=== PATIENT | female | born 1970 | race Caucasian/White ===

== ENCOUNTER 2017-03-12 11:30 | Emergency (ER) | payer MEDICAID ==
[~2017-03-12] VITALS: Ht 162.6 cm; Wt 82.0 kg
[2017-03-12 11:51] VITALS: BP 122/74
[2017-03-12] MEDS ORDERED: acetaminophen 325mg tablet PO ONE (14:05)
[2017-03-12] MEDS ORDERED: aspirin 325mg tablet PO ONE (14:05)
[2017-03-12 14:15] LABS: CLARITY,URINE CLEAR (Clear); COLOR,URINE YELLOW (Yellow); GLUCOSE, URINE NEGATIVE (Neg); KETONES,URINE NEGATIVE (Neg); LEUKOCYTE ESTERASE ,URINE NEGATIVE (Neg); NITRITES, URINE NEGATIVE (Neg); OCCULT BLOOD,URINE TRACE-INTACT (Neg); PH,URINE 5.5 (4.8-8.0); PROTEIN,URINE NEGATIVE (Neg); UROBILINOGEN,URINE 0.2 E.U/dL (0.2-1.0)
[2017-03-12 14:19] LABS: UA COLLECTION TYPE CLN CATCH MIDSTREAM
[2017-03-12 14:20] LABS: RBC,URINE NONE SEEN /HPF (0-2); WBC,URINE 0-4 /HPF (0-4)
[2017-03-12 14:21] LABS: BACTERIA,URINE 1+ /HPF (Neg); MUCUS STRANDS NONE SEEN /LPF (Neg); SQUAMOUS EPITHELIAL CELL,UR FEW /LPF (FEW)
[2017-03-12] MEDS ORDERED: HYDR-3965 PO (15:16)
[2017-03-12] MEDS ORDERED: CYCL-1 PO (15:16)
== END 2017-03-12 15:22 | disposition home or self-care (01) ==
LOC: ER 11:30
DX: M54.6 Pain in thoracic spine (principal); R31.29 Other microscopic hematuria; Z88.5 Allergy status to narcotic agent
CPT/HCPCS: 81001; 87088; 99284

== ENCOUNTER 2020-10-25 04:03 | Inpatient (IN) | payer BC, MEDICAID ==
[~2020-10-25] VITALS: Ht 162.6 cm; Wt 86.4 kg
[~2020-10-25 04:03] MED LIST: CYCL-1 PO
[2020-10-25] MEDS ORDERED: normal saline 1000ml 1,000 ML IV ONE (04:35)
[2020-10-25 05:12] LABS: BASOPHILS % (AUTO) 0.3 % (0-1); EOSINOPHILS % (AUTO) 0 % (0-6); HEMATOCRIT 39.2 % (35.0-45.0); HEMOGLOBIN 12.7 g/dl (12.0-16.0); LYMPHOCYTES % (AUTO) 18.9 % (21-51); MEAN CORPUSCULAR HEMOGLOBIN 28.4 PG (27.0-31.0); MEAN CORPUSCULAR HGB CONC 32.4 g/dL (33.0-36.5); MEAN CORPUSCULAR VOLUME 87.7 FL (78-98); MEAN PLATELET VOLUME 8.1 FL (7.4-10.4); MONOCYTES # (AUTO) 0.2 X10'3 (0-0.9); MONOCYTES % (AUTO) 2.2 % (2-12); NEUTROPHILS # (AUTO) 8.4 X10'3 (1.8-7.7); NEUTROPHILS % (AUTO) 78.6 % (42-75); PLATELET COUNT 328 X10'3 (140-440); RED BLOOD COUNT 4.47 X10'6 (4.20-5.60); RED CELL DISTRIBUTION WIDTH 14.3 % (11.5-14.5); WHITE BLOOD COUNT 10.7 X10'3 (4.5-11.0)
[2020-10-25 05:15] LABS: ALBUMIN 3.1 G/DL (3.4-5.0); ANION GAP 10 (8-16); BLOOD UREA NITROGEN 7 MG/DL (7-18); BUN/CREATININE RATIO 7.5 (6.6-38.0); CALCIUM 8.2 MG/DL (8.5-10.1); CHLORIDE 105 MMOL/L (99-107); CREATININE 0.93 MG/DL (0.40-0.90); GLUCOSE 142 MG/DL (70-104); POTASSIUM 3.4 MMOL/L (3.5-5.1); SODIUM 143 MMOL/L (135-145); TOTAL CARBON DIOXIDE 28.5 MMOL/L (24-32); TROPONIN I < 0.04 NG/ML (0.0-0.05); eGFR 64 ML/MIN
[2020-10-25] MEDS ORDERED: dexamethasone sod phosphate 10mg/ml inj IV STA (05:56)
[2020-10-25] MEDS ORDERED: REMDESIVIR INJ 100 MG in normal saline 100ml IV soln 100 ML IV SCH (08:40)
[2020-10-25] MEDS ORDERED: ondansetron/PF 4mg/2ml inj IV PRN (08:40)
[2020-10-25] MEDS ORDERED: magnesium hydroxide 30ml (MOM) UD suspension PO PRN (08:40)
[2020-10-25] MEDS ORDERED: mag hydrox/Alum hydrox/simeth 30ml oral suspension PO PRN (08:40)
[2020-10-25] MEDS ORDERED: REMDESIVIR 200 MG in NS 100ml IVPB Loading dose IV ONE (08:50)
--- NOTE | 2020-10-25 08:57 | NUR ---
PAGER ID: [phone] MESSAGE: Patient [facility] ED room 15 has a K+ of 3.4. I need the replacement protocol. Thanks Sandra ext [phone]
[2020-10-25] MEDS: normal saline 1000ml 1,000 ML IV SCH ×2 (09:10→18:40)
[2020-10-25] MEDS: acetaminophen 325mg tablet PO PRN ×2 (09:10→19:54)
[2020-10-25] MEDS ORDERED: METO-395 PO (09:32)
[2020-10-25] MEDS ORDERED: BUPR-317 PO (09:32)
[2020-10-25] MEDS ORDERED: HYDR50CA5 PO (09:32)
[2020-10-25] MEDS ORDERED: LEVO50TA8 PO (09:32)
[2020-10-25] MEDS ORDERED: VITA-268 PO (09:32)
[2020-10-25] MEDS ORDERED: SERT-433 PO (09:32)
[2020-10-25] MEDS ORDERED: IVER3TAB2 PO (09:32)
[2020-10-25] MEDS ORDERED: HYDR200T84 PO (09:32)
[2020-10-25] MEDS ORDERED: CHOL100025 PO (09:32)
[2020-10-25] MEDS ORDERED: ASCO-10 PO (09:32)
[2020-10-25 09:36] LABS: C-REACTIVE PROTEIN 15.95 MG/DL (0.0-0.5); FERRITIN 578 NG/ML (8-252); LACTATE DEHYDROGENASE 753 U/L (81-234)
[2020-10-25] MEDS: sertraline 50mg tablet PO SCH (10:14)
[2020-10-25] MEDS: levoTHYROXINE 25mcg tablet PO SCH (10:14)
[2020-10-25] MEDS: ascorbic acid 500mg tablet PO SCH ×2 (10:15→20:23)
[2020-10-25] MEDS: hydrOXYzine 25 MG tablet PO PRN (10:15)
[2020-10-25] MEDS: buPROPion SR 150mg tablet PO SCH (10:16)
[2020-10-25] MEDS: cholecalciferol (vitamin D3) 1,000 unit (25mcg) tablet PO SCH (10:16)
[2020-10-25] MEDS: metoprolol succinate 25mg (24-HOUR) SR. Tablet PO SCH (10:17)
[2020-10-25 10:30] LABS: D-DIMER 2.31 MG/L FEU (0-0.50)
--- NOTE | 2020-10-25 19:40 | NUR ---
Attempted to call report to COVID unit [phone], phone rang without answer.
[2020-10-25] MEDS: docusate sod 100mg capsule PO SCH (20:23)
[2020-10-25] MEDS: enoxaparin 30mg/0.3ml syringe SQ SCH (20:24)
[2020-10-25] MEDS: dexamethasone inj 6 MG in normal saline 50ml IV soln 50 ML IV SCH (21:07)
[2020-10-25 21:30] VITALS: BP 123/72
[2020-10-25 22:00] VITALS: BP 113/64
[2020-10-26] MEDS: normal saline 1000ml 1,000 ML IV SCH ×3 (05:38→23:58)
[2020-10-26 06:00] VITALS: BP 123/73
--- NOTE | 2020-10-26 06:45 | NUR ---
Problems reprioritized. Patient report given, questions answered & plan of care reviewed with DAVID. Addendum: 10/26/20 at 0646 by Long Pro RN Amended: Links added.
--- NOTE | 2020-10-26 06:52 | NUR ---
Patient in room COVID 06. I have received report from Lucius Silvestre and had the opportunity to ask questions and assume patient care.
--- NOTE | 2020-10-26 07:00 | NUR ---
Problems reprioritized. Patient report given, questions answered & plan of care reviewed with DAVID. Addendum: 10/26/20 at 0700 by Long Pro RN Amended: Links added.
[2020-10-26 07:52] LABS: BASOPHILS % (AUTO) 0.1 % (0-1); EOSINOPHILS % (AUTO) 0 % (0-6); HEMATOCRIT 35.5 % (35.0-45.0); HEMOGLOBIN 11.6 g/dl (12.0-16.0); LYMPHOCYTES % (AUTO) 26.6 % (21-51); MEAN CORPUSCULAR HEMOGLOBIN 28.3 PG (27.0-31.0); MEAN CORPUSCULAR HGB CONC 32.6 g/dL (33.0-36.5); MEAN CORPUSCULAR VOLUME 86.8 FL (78-98); MEAN PLATELET VOLUME 7.6 FL (7.4-10.4); MONOCYTES # (AUTO) 0.5 X10'3 (0-0.9); MONOCYTES % (AUTO) 6.2 % (2-12); NEUTROPHILS # (AUTO) 5.1 X10'3 (1.8-7.7); NEUTROPHILS % (AUTO) 67.1 % (42-75); PLATELET COUNT 381 X10'3 (140-440); RED BLOOD COUNT 4.09 X10'6 (4.20-5.60); RED CELL DISTRIBUTION WIDTH 14.1 % (11.5-14.5); WHITE BLOOD COUNT 7.6 X10'3 (4.5-11.0)
[2020-10-26] MEDS ORDERED: hydroxychloroquine 200mg tablet PO SCH (08:00)
[2020-10-26 08:05] LABS: ALANINE AMINOTRANSFERASE 45 U/L (12-78); ALBUMIN 2.5 G/DL (3.4-5.0); ALBUMIN/GLOBULIN RATIO 0.6 (1.1-1.5); ALKALINE PHOSPHATASE 106 IU/L (46-116); ANION GAP 9 (8-16); ASPARTATE AMINO TRANSFERASE 48 U/L (10-37); BILIRUBIN,TOTAL 0.3 MG/DL (0.1-1.0); BLOOD UREA NITROGEN 11 MG/DL (7-18); BUN/CREATININE RATIO 19.6 (6.6-38.0); C-REACTIVE PROTEIN 12.03 MG/DL (0.0-0.5); CALCIUM 7.6 MG/DL (8.5-10.1); CHLORIDE 109 MMOL/L (99-107); CREATININE 0.56 MG/DL (0.40-0.90); D-DIMER 2.64 MG/L FEU (0-0.50); GLUCOSE 141 MG/DL (70-104); POTASSIUM 3.6 MMOL/L (3.5-5.1); SODIUM 144 MMOL/L (135-145); TOTAL CARBON DIOXIDE 26.3 MMOL/L (24-32); TOTAL PROTEIN 6.8 G/DL (6.4-8.2); eGFR > 90 ML/MIN
[2020-10-26] MEDS: dexamethasone inj 6 MG in normal saline 50ml IV soln 50 ML IV SCH ×2 (08:15→20:47)
[2020-10-26] MEDS: vitamin B comp w/Vit. C tab 1 TAB TABLET PO SCH (08:15)
[2020-10-26] MEDS: metoprolol succinate 25mg (24-HOUR) SR. Tablet PO SCH (08:15)
[2020-10-26] MEDS: docusate sod 100mg capsule PO SCH ×3 (08:16→20:47)
[2020-10-26] MEDS: cholecalciferol (vitamin D3) 1,000 unit (25mcg) tablet PO SCH (08:16)
[2020-10-26] MEDS: buPROPion SR 150mg tablet PO SCH (08:16)
[2020-10-26] MEDS: levoTHYROXINE 25mcg tablet PO SCH (08:16)
[2020-10-26] MEDS: hydrOXYzine 25 MG tablet PO PRN ×2 (08:16→23:15)
[2020-10-26] MEDS: sertraline 50mg tablet PO SCH (08:17)
[2020-10-26] MEDS: enoxaparin 30mg/0.3ml syringe SQ SCH (08:17)
[2020-10-26] MEDS: ascorbic acid 500mg tablet PO SCH ×2 (08:48→20:47)
[2020-10-26] MEDS: REMDESIVIR 100 MG in NS 100ml IVPB IV SCH (08:49)
--- NOTE | 2020-10-26 09:43 | NUR ---
Patient requiring 15L high alan oxygen. Patient was down to 71 on nasal cannula. Patient on 15L non rebreather mask but remains at 88-89. RT in to see patient and patient is on 15L high alan nasal cannula and 15L non rebreather mask and is now 94% spo2. Will continue to monitor. PAGER ID: [phone] MESSAGE: covid unit 6B- [facility]- pt needing to be on 15L high alan. ok to put in order? - Jono [phone] Addendum: 10/26/20 at 1840 by Jono Dickson RN Problems reprioritized. Patient report given, questions answered & plan of care reviewed with DENNIS Ellis.
[2020-10-26] MEDS ORDERED: pneumococcal 23-VAL P-sac vacc 25 mcg/0.5ml vial IMVAC ONE (10:00)
[2020-10-26 11:14] VITALS: BP 129/66
[2020-10-26 15:09] VITALS: BP 129/76
--- NOTE | 2020-10-26 18:30 | NUR ---
Patient in room COVID 06. I have received report from Jono COLLINS and had the opportunity to ask questions and assume patient care.
[2020-10-26 19:00] VITALS: BP 131/65
[2020-10-26] MEDS: enoxaparin 60mg/0.6ml syringe SUBCUT SCH (20:49)
[2020-10-26 23:30] VITALS: BP 134/75
[2020-10-27 04:00] VITALS: BP 141/86
--- NOTE | 2020-10-27 06:30 | NUR ---
Problems reprioritized. Patient report given, questions answered & plan of care reviewed with Sunni COLLINS.
[2020-10-27 07:00] VITALS: BP 133/81
[2020-10-27] MEDS: levoTHYROXINE 25mcg tablet PO SCH (07:31)
[2020-10-27] MEDS: cholecalciferol (vitamin D3) 1,000 unit (25mcg) tablet PO SCH (07:32)
[2020-10-27] MEDS: dexamethasone inj 6 MG in normal saline 50ml IV soln 50 ML IV SCH ×2 (07:32→20:38)
[2020-10-27] MEDS: docusate sod 100mg capsule PO SCH ×2 (07:32→20:00)
[2020-10-27] MEDS: vitamin B comp w/Vit. C tab 1 TAB TABLET PO SCH (07:33)
[2020-10-27] MEDS: metoprolol succinate 25mg (24-HOUR) SR. Tablet PO SCH (07:33)
[2020-10-27] MEDS: buPROPion SR 150mg tablet PO SCH (07:34)
[2020-10-27] MEDS: sertraline 50mg tablet PO SCH (07:34)
[2020-10-27] MEDS: enoxaparin 60mg/0.6ml syringe SUBCUT SCH (07:34)
[2020-10-27 08:32] LABS: BASOPHILS % (AUTO) 0 % (0-1); EOSINOPHILS % (AUTO) 0 % (0-6); HEMOGLOBIN 11.9 g/dl (12.0-16.0); LYMPHOCYTES # (AUTO) 2.7 X10'3 (1.1-4.8); LYMPHOCYTES % (AUTO) 21.7 % (21-51); MEAN CORPUSCULAR HEMOGLOBIN 28.5 PG (27.0-31.0); MEAN CORPUSCULAR HGB CONC 32.9 g/dL (33.0-36.5); MEAN CORPUSCULAR VOLUME 86.4 FL (78-98); MEAN PLATELET VOLUME 7.5 FL (7.4-10.4); MONOCYTES # (AUTO) 0.7 X10'3 (0-0.9); MONOCYTES % (AUTO) 5.7 % (2-12); NEUTROPHILS % (AUTO) 72.6 % (42-75); PLATELET COUNT 437 X10'3 (140-440); RED BLOOD COUNT 4.17 X10'6 (4.20-5.60); RED CELL DISTRIBUTION WIDTH 14.5 % (11.5-14.5); WHITE BLOOD COUNT 12.4 X10'3 (4.5-11.0)
[2020-10-27] MEDS: ascorbic acid 500mg tablet PO SCH ×2 (08:43→20:38)
[2020-10-27] MEDS: REMDESIVIR 100 MG in NS 100ml IVPB IV SCH (08:44)
[2020-10-27 09:13] LABS: ALANINE AMINOTRANSFERASE 46 U/L (12-78); ALBUMIN 2.6 G/DL (3.4-5.0); ALBUMIN/GLOBULIN RATIO 0.6 (1.1-1.5); ALKALINE PHOSPHATASE 105 IU/L (46-116); ANION GAP 11 (8-16); ASPARTATE AMINO TRANSFERASE 53 U/L (10-37); BILIRUBIN,TOTAL 0.3 MG/DL (0.1-1.0); BLOOD UREA NITROGEN 15 MG/DL (7-18); BUN/CREATININE RATIO 22.7 (6.6-38.0); C-REACTIVE PROTEIN 3.78 MG/DL (0.0-0.5); CALCIUM 7.9 MG/DL (8.5-10.1); CHLORIDE 110 MMOL/L (99-107); CREATININE 0.66 MG/DL (0.40-0.90); GLUCOSE 129 MG/DL (70-104); POTASSIUM 3.8 MMOL/L (3.5-5.1); SODIUM 147 MMOL/L (135-145); TOTAL CARBON DIOXIDE 26.1 MMOL/L (24-32); TOTAL PROTEIN 6.8 G/DL (6.4-8.2); eGFR > 90 ML/MIN
[2020-10-27 09:49] LABS: D-DIMER 5.61 MG/L FEU (0-0.50)
[2020-10-27] MEDS ORDERED: pneumococcal 23-VAL P-sac vacc 25 mcg/0.5ml vial IMVAC ONE (10:00)
--- NOTE | 2020-10-27 10:37 | NUR ---
ok to give pneumococcal vaccine while patient has covid per pharmacist.
[2020-10-27 12:30] VITALS: BP 136/78
[2020-10-27] MEDS: normal saline 1000ml 1,000 ML IV SCH (12:35)
[2020-10-27 16:00] VITALS: BP 137/72
[2020-10-27] MEDS ORDERED: iohexol 350MG/ML 100ml bottle IV ONE (16:43)
--- NOTE | 2020-10-27 18:30 | NUR ---
Report given to Paola COLLINS. All questions answered. Pt back from CTA. Eating dinner. Still on 15L NRB and 15L High flow, tried to wean but patient dropped but maintained well on this combination.
[2020-10-27] MEDS: enoxaparin 80mg/0.8ml syringe SUBCUT SCH (20:38)
[2020-10-27 21:57] VITALS: BP 144/75
[2020-10-28] MEDS: hydrOXYzine 25 MG tablet PO PRN (01:22)
[2020-10-28 02:00] VITALS: BP 136/77
[2020-10-28 07:00] VITALS: BP 127/75
--- NOTE | 2020-10-28 07:10 | NUR ---
Patient in room COVID 06. I have received report from Paola COLLINS and had the opportunity to ask questions and assume patient care.
[2020-10-28] MEDS: levoTHYROXINE 25mcg tablet PO SCH (07:30)
[2020-10-28 07:54] LABS: BASOPHILS % (AUTO) 0.1 % (0-1); EOSINOPHILS % (AUTO) 0 % (0-6); HEMATOCRIT 35.4 % (35.0-45.0); HEMOGLOBIN 11.5 g/dl (12.0-16.0); LYMPHOCYTES # (AUTO) 2.9 X10'3 (1.1-4.8); LYMPHOCYTES % (AUTO) 21.8 % (21-51); MEAN CORPUSCULAR HEMOGLOBIN 28.3 PG (27.0-31.0); MEAN CORPUSCULAR HGB CONC 32.4 g/dL (33.0-36.5); MEAN CORPUSCULAR VOLUME 87.2 FL (78-98); MEAN PLATELET VOLUME 7.7 FL (7.4-10.4); MONOCYTES # (AUTO) 0.6 X10'3 (0-0.9); MONOCYTES % (AUTO) 4.3 % (2-12); NEUTROPHILS # (AUTO) 9.7 X10'3 (1.8-7.7); NEUTROPHILS % (AUTO) 73.8 % (42-75); PLATELET COUNT 421 X10'3 (140-440); RED BLOOD COUNT 4.07 X10'6 (4.20-5.60); RED CELL DISTRIBUTION WIDTH 14.3 % (11.5-14.5); WHITE BLOOD COUNT 13.1 X10'3 (4.5-11.0)
[2020-10-28] MEDS: REMDESIVIR 100 MG in NS 100ml IVPB IV SCH (08:04)
[2020-10-28] MEDS: docusate sod 100mg capsule PO SCH ×2 (08:08→19:50)
[2020-10-28] MEDS: sertraline 50mg tablet PO SCH (08:09)
[2020-10-28] MEDS: buPROPion SR 150mg tablet PO SCH (08:09)
[2020-10-28] MEDS: vitamin B comp w/Vit. C tab 1 TAB TABLET PO SCH (08:09)
[2020-10-28] MEDS: cholecalciferol (vitamin D3) 1,000 unit (25mcg) tablet PO SCH (08:09)
[2020-10-28] MEDS: metoprolol succinate 25mg (24-HOUR) SR. Tablet PO SCH (08:09)
[2020-10-28] MEDS: ascorbic acid 500mg tablet PO SCH ×2 (08:09→19:50)
[2020-10-28 08:14] LABS: D-DIMER 9.98 MG/L FEU (0-0.50)
[2020-10-28 08:15] LABS: ALANINE AMINOTRANSFERASE 79 U/L (12-78); ALBUMIN 2.7 G/DL (3.4-5.0); ALBUMIN/GLOBULIN RATIO 0.7 (1.1-1.5); ALKALINE PHOSPHATASE 119 IU/L (46-116); ANION GAP 13 (8-16); ASPARTATE AMINO TRANSFERASE 56 U/L (10-37); BILIRUBIN,TOTAL 0.4 MG/DL (0.1-1.0); BLOOD UREA NITROGEN 15 MG/DL (7-18); BUN/CREATININE RATIO 19.5 (6.6-38.0); C-REACTIVE PROTEIN 2.01 MG/DL (0.0-0.5); CALCIUM 8.2 MG/DL (8.5-10.1); CHLORIDE 108 MMOL/L (99-107); CREATININE 0.77 MG/DL (0.40-0.90); GLUCOSE 139 MG/DL (70-104); POTASSIUM 3.6 MMOL/L (3.5-5.1); SODIUM 147 MMOL/L (135-145); TOTAL PROTEIN 6.5 G/DL (6.4-8.2); eGFR 79 ML/MIN
[2020-10-28] MEDS: enoxaparin 80mg/0.8ml syringe SUBCUT SCH ×2 (08:56→19:51)
[2020-10-28] MEDS: dexamethasone inj 6 MG in normal saline 50ml IV soln 50 ML IV SCH ×2 (09:20→19:50)
[2020-10-28 11:00] VITALS: BP 114/57
--- NOTE | 2020-10-28 11:00 | NUR ---
When pt on her back, pt's O2 sats 88-89% with RR up to low 30's with highflow 15L O2 and nonrebreather on 15L O2. When placed onto her side, O2 sats improved to 92-95% with RR 22-24. Instruction given to pt verbalizing understanding. MD and RT, pre billing clinician aware. Will continue to monitor.
[2020-10-28] MEDS ORDERED: furosemide 20 MG/2 ML vial IV ONE (11:30)
--- NOTE | 2020-10-28 15:40 | NUR ---
After sitting up in bed, Pt O2Sats 88-89%, RR 30, pt c/o SOB, on 50, FIO2 100 % High flow tower, with O2Sats dropping down into high 70's, then back up to 87-88% after High flow adjusted to 55, FiO2 100% gang mower operator unavailable. Paged RT. RT arrived to bedside. Helped adjust/titrate high flow tower. After rest, pt's O2 Sats up to 93-95%, RR 24-26 with High Flow at 55, FIO2 100%. Will continue to monitor.
[2020-10-28 18:00] VITALS: BP 103/60
--- NOTE | 2020-10-28 18:00 | NUR ---
Patient in room COVID 06. I have received report from Winsome and had the opportunity to ask questions and assume patient care.
--- NOTE | 2020-10-28 18:23 | NUR ---
Problems reprioritized. Patient report given, questions answered & plan of care reviewed with Brandy COLLINS.
[2020-10-29 08:00] VITALS: BP 134/66
[2020-10-29 09:04] LABS: BASOPHILS % (AUTO) 0.3 % (0-1); EOSINOPHILS % (AUTO) 0 % (0-6); HEMATOCRIT 40.2 % (35.0-45.0); HEMOGLOBIN 12.9 g/dl (12.0-16.0); LYMPHOCYTES # (AUTO) 3.4 X10'3 (1.1-4.8); LYMPHOCYTES % (AUTO) 26.4 % (21-51); MEAN CORPUSCULAR HEMOGLOBIN 27.9 PG (27.0-31.0); MEAN CORPUSCULAR HGB CONC 32.1 g/dL (33.0-36.5); MEAN CORPUSCULAR VOLUME 86.8 FL (78-98); MEAN PLATELET VOLUME 7.5 FL (7.4-10.4); MONOCYTES # (AUTO) 0.3 X10'3 (0-0.9); MONOCYTES % (AUTO) 2.5 % (2-12); NEUTROPHILS % (AUTO) 70.8 % (42-75); PLATELET COUNT 472 X10'3 (140-440); RED BLOOD COUNT 4.63 X10'6 (4.20-5.60); RED CELL DISTRIBUTION WIDTH 13.8 % (11.5-14.5); WHITE BLOOD COUNT 12.7 X10'3 (4.5-11.0)
[2020-10-29 09:24] LABS: ALANINE AMINOTRANSFERASE 68 U/L (12-78); ALBUMIN 2.8 G/DL (3.4-5.0); ALBUMIN/GLOBULIN RATIO 0.7 (1.1-1.5); ALKALINE PHOSPHATASE 118 IU/L (46-116); ANION GAP 9 (8-16); ASPARTATE AMINO TRANSFERASE 38 U/L (10-37); BILIRUBIN,TOTAL 0.7 MG/DL (0.1-1.0); BLOOD UREA NITROGEN 18 MG/DL (7-18); CALCIUM 8.2 MG/DL (8.5-10.1); CHLORIDE 108 MMOL/L (99-107); CREATININE 0.72 MG/DL (0.40-0.90); GLUCOSE 147 MG/DL (70-104); POTASSIUM 3.6 MMOL/L (3.5-5.1); SODIUM 146 MMOL/L (135-145); TOTAL CARBON DIOXIDE 29.5 MMOL/L (24-32); eGFR 86 ML/MIN
[2020-10-29] MEDS: dexamethasone inj 6 MG in normal saline 50ml IV soln 50 ML IV SCH (09:25)
[2020-10-29] MEDS: vitamin B comp w/Vit. C tab 1 TAB TABLET PO SCH (09:26)
[2020-10-29] MEDS: buPROPion SR 150mg tablet PO SCH (09:26)
[2020-10-29] MEDS: cholecalciferol (vitamin D3) 1,000 unit (25mcg) tablet PO SCH (09:26)
[2020-10-29] MEDS: docusate sod 100mg capsule PO SCH ×2 (09:26→22:50)
[2020-10-29] MEDS: levoTHYROXINE 25mcg tablet PO SCH (09:26)
[2020-10-29] MEDS: REMDESIVIR 100 MG in NS 100ml IVPB IV SCH (09:26)
[2020-10-29] MEDS: metoprolol succinate 25mg (24-HOUR) SR. Tablet PO SCH (09:26)
[2020-10-29] MEDS: hydrOXYzine 25 MG tablet PO PRN (09:27)
[2020-10-29] MEDS: sertraline 50mg tablet PO SCH (09:27)
[2020-10-29] MEDS: enoxaparin 80mg/0.8ml syringe SUBCUT SCH ×2 (09:27→23:14)
[2020-10-29] MEDS: ascorbic acid 500mg tablet PO SCH ×2 (09:27→22:50)
[2020-10-29] MEDS ORDERED: salt irrigation nasal spray 45 ML SPRAY NS PRN (11:50)
[2020-10-29 12:28] VITALS: BP 117/69
[2020-10-29 15:14] VITALS: BP 136/75
[2020-10-29] MEDS: methylPREDNISolone sod succ/PF 40mg inj. IV SCH (15:34)
[2020-10-29 18:00] VITALS: BP 146/79
[2020-10-29 22:00] VITALS: BP 128/70
[2020-10-30] MEDS: methylPREDNISolone sod succ/PF 40mg inj. IV SCH ×3 (00:04→16:15)
[2020-10-30 02:00] VITALS: BP 136/70
[2020-10-30 07:00] VITALS: BP 134/77
[2020-10-30 08:59] LABS: BASOPHILS % (AUTO) 0.3 % (0-1); EOSINOPHILS % (AUTO) 0 % (0-6); HEMATOCRIT 40.7 % (35.0-45.0); HEMOGLOBIN 13.3 g/dl (12.0-16.0); LYMPHOCYTES % (AUTO) 27.5 % (21-51); MEAN CORPUSCULAR HEMOGLOBIN 27.9 PG (27.0-31.0); MEAN CORPUSCULAR HGB CONC 32.7 g/dL (33.0-36.5); MEAN CORPUSCULAR VOLUME 85.6 FL (78-98); MEAN PLATELET VOLUME 7.2 FL (7.4-10.4); MONOCYTES # (AUTO) 0.4 X10'3 (0-0.9); MONOCYTES % (AUTO) 2.8 % (2-12); NEUTROPHILS # (AUTO) 10.1 X10'3 (1.8-7.7); NEUTROPHILS % (AUTO) 69.4 % (42-75); PLATELET COUNT 540 X10'3 (140-440); RED BLOOD COUNT 4.76 X10'6 (4.20-5.60); RED CELL DISTRIBUTION WIDTH 13.9 % (11.5-14.5); WHITE BLOOD COUNT 14.5 X10'3 (4.5-11.0)
[2020-10-30 09:16] LABS: ALANINE AMINOTRANSFERASE 55 U/L (12-78); ALBUMIN 2.9 G/DL (3.4-5.0); ALBUMIN/GLOBULIN RATIO 0.7 (1.1-1.5); ALKALINE PHOSPHATASE 101 IU/L (46-116); ANION GAP 9 (8-16); ASPARTATE AMINO TRANSFERASE 25 U/L (10-37); BILIRUBIN,TOTAL 0.7 MG/DL (0.1-1.0); BLOOD UREA NITROGEN 16 MG/DL (7-18); BUN/CREATININE RATIO 24.2 (6.6-38.0); C-REACTIVE PROTEIN 0.81 MG/DL (0.0-0.5); CALCIUM 8.2 MG/DL (8.5-10.1); CHLORIDE 107 MMOL/L (99-107); CREATININE 0.66 MG/DL (0.40-0.90); GLUCOSE 110 MG/DL (70-104); POTASSIUM 3.9 MMOL/L (3.5-5.1); SODIUM 146 MMOL/L (135-145); TOTAL CARBON DIOXIDE 29.6 MMOL/L (24-32); TOTAL PROTEIN 7.3 G/DL (6.4-8.2); eGFR > 90 ML/MIN
[2020-10-30 09:18] LABS: D-DIMER 4.37 MG/L FEU (0-0.50)
[2020-10-30] MEDS: vitamin B comp w/Vit. C tab 1 TAB TABLET PO SCH (09:51)
[2020-10-30] MEDS: cholecalciferol (vitamin D3) 1,000 unit (25mcg) tablet PO SCH (09:51)
[2020-10-30] MEDS: docusate sod 100mg capsule PO SCH ×2 (09:51→19:25)
[2020-10-30] MEDS: buPROPion SR 150mg tablet PO SCH (09:51)
[2020-10-30] MEDS: ascorbic acid 500mg tablet PO SCH ×2 (09:52→19:24)
[2020-10-30] MEDS: metoprolol succinate 25mg (24-HOUR) SR. Tablet PO SCH (09:52)
[2020-10-30] MEDS: sertraline 50mg tablet PO SCH (09:52)
[2020-10-30] MEDS: levoTHYROXINE 25mcg tablet PO SCH (09:56)
[2020-10-30] MEDS: enoxaparin 80mg/0.8ml syringe SUBCUT SCH ×2 (09:56→19:24)
[2020-10-30 11:00] VITALS: BP 124/79
--- NOTE | 2020-10-30 13:56 | NUR ---
Initial: Pt admit DX COVID-19 and acute respiratory failure per MD note. PO 50-75% avg regular diet however decreased to 25% meals yesterday partially meeting needs. Noted pt on 50L/min high flow down to 80% FiO2 from 100% prior per EMR. RD recommends Ensure Enlive ONS TIDWM to optimize protein/kcal intake; MD notified. LBM 10/29 receiving routine colace. Will continue to monitor. Rec: 1. continue regular diet; encourage PO 2. Ensure Enlive TIDWM; pending MD verification in EMR 3. routine bowel care 4. scaled wt this admit; subsequent weekly wts Addendum: 10/30/20 at [address] Amended: Links added.
[2020-10-30 15:00] VITALS: BP 131/75
[2020-10-30 18:00] VITALS: BP 111/76
--- NOTE | 2020-10-30 18:00 | NUR ---
Patient in room COVID 06. I have received report from milan rosen and had the opportunity to ask questions and assume patient care.
--- NOTE | 2020-10-30 18:21 | NUR ---
Problems reprioritized. Patient report given, questions answered & plan of care reviewed with Brandy COLLINS.
[2020-10-30] MEDS: hydrOXYzine 25 MG tablet PO PRN (21:53)
[2020-10-31] MEDS: methylPREDNISolone sod succ/PF 40mg inj. IV SCH ×3 (00:31→20:38)
[2020-10-31 07:00] VITALS: BP 143/83
[2020-10-31] MEDS: levoTHYROXINE 25mcg tablet PO SCH (07:54)
[2020-10-31] MEDS: ascorbic acid 500mg tablet PO SCH ×2 (07:55→20:39)
[2020-10-31] MEDS: docusate sod 100mg capsule PO SCH ×2 (07:55→20:00)
[2020-10-31] MEDS: vitamin B comp w/Vit. C tab 1 TAB TABLET PO SCH (07:55)
[2020-10-31] MEDS: sertraline 50mg tablet PO SCH (07:55)
[2020-10-31] MEDS: buPROPion SR 150mg tablet PO SCH (07:55)
[2020-10-31] MEDS: enoxaparin 80mg/0.8ml syringe SUBCUT SCH ×2 (07:56→20:39)
[2020-10-31] MEDS: metoprolol succinate 25mg (24-HOUR) SR. Tablet PO SCH (07:57)
[2020-10-31] MEDS: cholecalciferol (vitamin D3) 1,000 unit (25mcg) tablet PO SCH (08:00)
[2020-10-31 08:52] LABS: D-DIMER 3.68 MG/L FEU (0-0.50)
[2020-10-31 11:00] VITALS: BP 120/68
[2020-10-31 15:00] VITALS: BP 124/50
--- NOTE | 2020-10-31 18:33 | NUR ---
Problems reprioritized. Patient report given, questions answered & plan of care reviewed with DENNIS STARKEY.
[2020-10-31 22:00] VITALS: BP 125/76
[2020-11-01 07:00] VITALS: BP 91/60
--- NOTE | 2020-11-01 07:19 | NUR ---
Patient in room COVID 06. I have received report from Brandy Kan and had the opportunity to ask questions and assume patient care.
[2020-11-01] MEDS: lactose-reduced food (Ensure Enlive) - 237ml bottle PO SCH ×3 (08:00→18:00)
[2020-11-01] MEDS: metoprolol succinate 25mg (24-HOUR) SR. Tablet PO SCH (08:00)
[2020-11-01 08:13] LABS: D-DIMER 2.35 MG/L FEU (0-0.50)
[2020-11-01] MEDS: buPROPion SR 150mg tablet PO SCH (08:28)
[2020-11-01] MEDS: levoTHYROXINE 25mcg tablet PO SCH (08:28)
[2020-11-01] MEDS: cholecalciferol (vitamin D3) 1,000 unit (25mcg) tablet PO SCH (08:28)
[2020-11-01] MEDS: vitamin B comp w/Vit. C tab 1 TAB TABLET PO SCH (08:28)
[2020-11-01] MEDS: docusate sod 100mg capsule PO SCH ×2 (08:29→20:00)
[2020-11-01] MEDS: methylPREDNISolone sod succ/PF 40mg inj. IV SCH ×3 (08:29→21:11)
[2020-11-01] MEDS: ascorbic acid 500mg tablet PO SCH ×2 (08:29→21:15)
[2020-11-01] MEDS: sertraline 50mg tablet PO SCH (08:29)
[2020-11-01] MEDS: enoxaparin 80mg/0.8ml syringe SUBCUT SCH ×2 (08:29→21:19)
--- NOTE | 2020-11-01 10:45 | NUR ---
Able to titrate patient to 4Liters o2 via NC. Sats remained stable at 96% encouraged deep breathing, pt able to give return demonstration.
[2020-11-01 11:00] VITALS: BP 97/66
[2020-11-01 15:00] VITALS: BP 111/67
[2020-11-01 18:00] VITALS: BP 136/68
--- NOTE | 2020-11-01 18:33 | NUR ---
Problems reprioritized. Patient report given, questions answered & plan of care reviewed with Raya Kan.
[2020-11-01 22:00] VITALS: BP 126/69
[2020-11-02 02:00] VITALS: BP 111/61
[2020-11-02 06:00] VITALS: BP 112/77
--- NOTE | 2020-11-02 06:50 | NUR ---
Patient in room COVID 06B. I have received report from DENNIS LOMAS and had the opportunity to ask questions and assume patient care.
[2020-11-02] MEDS: docusate sod 100mg capsule PO SCH (08:00)
[2020-11-02] MEDS: lactose-reduced food (Ensure Enlive) - 237ml bottle PO SCH ×2 (08:00→13:00)
[2020-11-02] MEDS: vitamin B comp w/Vit. C tab 1 TAB TABLET PO SCH (09:10)
[2020-11-02] MEDS: methylPREDNISolone sod succ/PF 40mg inj. IV SCH (09:11)
[2020-11-02] MEDS: sertraline 50mg tablet PO SCH (09:11)
[2020-11-02] MEDS: levoTHYROXINE 25mcg tablet PO SCH (09:11)
[2020-11-02] MEDS: cholecalciferol (vitamin D3) 1,000 unit (25mcg) tablet PO SCH (09:11)
[2020-11-02] MEDS: buPROPion SR 150mg tablet PO SCH (09:11)
[2020-11-02] MEDS: ascorbic acid 500mg tablet PO SCH (09:11)
[2020-11-02 09:12] LABS: BASOPHILS # (AUTO) 0.1 X10'3 (0-0.2); BASOPHILS % (AUTO) 0.3 % (0-1); EOSINOPHILS # (AUTO) 0.3 X10'3 (0-0.9); EOSINOPHILS % (AUTO) 1.7 % (0-6); HEMATOCRIT 43.5 % (35.0-45.0); HEMOGLOBIN 13.9 g/dl (12.0-16.0); LYMPHOCYTES # (AUTO) 5.2 X10'3 (1.1-4.8); LYMPHOCYTES % (AUTO) 26.9 % (21-51); MEAN CORPUSCULAR HEMOGLOBIN 28.1 PG (27.0-31.0); MEAN CORPUSCULAR HGB CONC 32.1 g/dL (33.0-36.5); MEAN CORPUSCULAR VOLUME 87.6 FL (78-98); MEAN PLATELET VOLUME 7.4 FL (7.4-10.4); MONOCYTES # (AUTO) 0.7 X10'3 (0-0.9); MONOCYTES % (AUTO) 3.6 % (2-12); NEUTROPHILS % (AUTO) 67.5 % (42-75); PLATELET COUNT 508 X10'3 (140-440); RED BLOOD COUNT 4.96 X10'6 (4.20-5.60); RED CELL DISTRIBUTION WIDTH 14.1 % (11.5-14.5); WHITE BLOOD COUNT 19.2 X10'3 (4.5-11.0)
[2020-11-02] MEDS: metoprolol succinate 25mg (24-HOUR) SR. Tablet PO SCH (09:12)
[2020-11-02] MEDS: enoxaparin 80mg/0.8ml syringe SUBCUT SCH (09:12)
[2020-11-02 09:28] LABS: C-REACTIVE PROTEIN 0.09 MG/DL (0.0-0.5); CALCIUM 8.6 MG/DL (8.5-10.1); CHLORIDE 103 MMOL/L (99-107); CREATININE 0.68 MG/DL (0.40-0.90); GLUCOSE 171 MG/DL (70-104); POTASSIUM 4.2 MMOL/L (3.5-5.1); TOTAL CARBON DIOXIDE 26.1 MMOL/L (24-32); eGFR > 90 ML/MIN
[2020-11-02 09:33] LABS: ANION GAP 12 (8-16); BLOOD UREA NITROGEN 19 MG/DL (7-18); BUN/CREATININE RATIO 27.9 (6.6-38.0); SODIUM 141 MMOL/L (135-145)
[2020-11-02 10:00] VITALS: BP 110/69
[2020-11-02 11:10] LABS: D-DIMER 1.52 MG/L FEU (0-0.50)
--- NOTE | 2020-11-02 12:00 | NUR ---
O2 Sat at rest on room air: 96% If below 89%: Recovery O2 Sat at rest on ___LPM:___%:___% via (mask/nasal cannula, etc..) No further documentation is necessary. If O2 Sat did not drop below 89% on room air,ambulate patient on room air. O2 Sat while ambulating on room air: 90% Recovery O2 Sat while ambulating on ___LPM:___% No further documentation is necessary. If patient does not drop below 89% while ambulating, he/she does not qualify for home O2.
--- NOTE | 2020-11-02 14:17 | NUR ---
D/C INSTRUCTIONS GIVEN, QUESTIONS ANSWERED. BELONGINGS GATHERED BY PT AND SENT WITH PT. IV D/C'D, CANNULA INTACT, NO COMPLICATIONS. D/C'D PT IN STABLE CONDITION TO HOME IN PRIVATE VEHICLE ACCOMPANIED BY SPOUSE. PT LEFT FLOOR AT [phone]
== END 2020-11-02 13:20 | disposition home or self-care (01) | DRG 177 ==
LOC: ER 04:03 → ED HOLD 08:40 → COVID IP 20:55
PROVIDERS: ADMIT Family Medicine; ATTEND Family Medicine
PROC: XW033E5 Introduction of Remdesivir Anti-infective into Peripheral Vein, Percutaneous Approach, New Technology Group 5 (ICD-10-PCS; principal; 2020-10-25)
PROC: 5A0945A Assistance with Respiratory Ventilation, 24-96 Consecutive Hours, High Flow/Velocity Cannula (ICD-10-PCS; 2020-10-25)
PROC: 3E0234Z Introduction of Serum, Toxoid and Vaccine into Muscle, Percutaneous Approach (ICD-10-PCS; 2020-10-27)
PROC: B32T1ZZ Computerized Tomography (CT Scan) of Left Pulmonary Artery using Low Osmolar Contrast (ICD-10-PCS; 2020-10-27)
PROC: B3201ZZ Computerized Tomography (CT Scan) of Thoracic Aorta using Low Osmolar Contrast (ICD-10-PCS; 2020-10-27)
PROC: B32S1ZZ Computerized Tomography (CT Scan) of Right Pulmonary Artery using Low Osmolar Contrast (ICD-10-PCS; 2020-10-27)
PROC: 5A0945A Assistance with Respiratory Ventilation, 24-96 Consecutive Hours, High Flow/Velocity Cannula (ICD-10-PCS; 2020-10-28)
DX: U07.1 COVID-19 (principal); J12.82 Pneumonia due to coronavirus disease 2019; J96.01 Acute respiratory failure with hypoxia; I95.9 Hypotension, unspecified; E03.9 Hypothyroidism, unspecified; E87.6 Hypokalemia; F41.9 Anxiety disorder, unspecified; I10 Essential (primary) hypertension; T38.0X5A Adverse effect of glucocorticoids and synthetic analogues, initial encounter; Y92.230 Patient room in hospital as the place of occurrence of the external cause; Z23 Encounter for immunization; Z88.8 Allergy status to other drugs, medicaments and biological substances; Z79.899 Other long term (current) drug therapy; Z79.890 Hormone replacement therapy
CPT/HCPCS: 36415; 71045; 71275; 80048; 80053; 82728; 83615; 84145; 84443; 84484; 85025; 85379; 85384; 86140; 87081; 90732; 93970; 94760; 96361; 96374; 99285; G0378; J1100; J1650; J1940; J2405; J2920; J7030; Q0177; Q9967

== ENCOUNTER 2024-06-27 16:57 | Emergency (ER) | payer BC, MEDICAID ==
[~2024-06-27] VITALS: Ht 162.6 cm; Wt 73.6 kg
[~2024-06-27 16:57] MED LIST changes: +ASCO-10 PO; +BUPR-726 PO; +CHOL100025 PO; -CYCL-1 PO; +HYDR200T73 PO; +HYDR50CA5 PO; +IVER3TAB2 PO; +LEVO50TA8 PO; +METO-395 PO; +SERT-433 PO; +VITA-268 PO
[2024-06-27 17:36] LABS: BASOPHILS # (AUTO) 0.1 X10'3 (0-0.2); BASOPHILS % (AUTO) 0.7 % (0-1); EOSINOPHILS # (AUTO) 0.1 X10'3 (0-0.9); EOSINOPHILS % (AUTO) 0.6 % (0-6); HEMATOCRIT 38.8 % (35.0-45.0); HEMOGLOBIN 12.9 g/dl (12.0-16.0); LYMPHOCYTES # (AUTO) 4.1 X10'3 (1.1-4.8); LYMPHOCYTES % (AUTO) 42.9 % (21-51); MEAN CORPUSCULAR HEMOGLOBIN 29.2 PG (27.0-31.0); MEAN CORPUSCULAR HGB CONC 33.4 g/dL (33.0-36.5); MEAN CORPUSCULAR VOLUME 87.5 FL (78-98); MEAN PLATELET VOLUME 8.4 FL (7.4-10.4); MONOCYTES # (AUTO) 0.7 X10'3 (0-0.9); MONOCYTES % (AUTO) 7.2 % (2-12); NEUTROPHILS # (AUTO) 4.7 X10'3 (1.8-7.7); NEUTROPHILS % (AUTO) 48.6 % (42-75); PLATELET COUNT 310 X10'3 (140-440); RED BLOOD COUNT 4.43 X10'6 (4.20-5.60); RED CELL DISTRIBUTION WIDTH 13.3 % (11.5-14.5); WHITE BLOOD COUNT 9.6 X10'3 (4.5-11.0)
[2024-06-27 17:49] LABS: ALANINE AMINOTRANSFERASE 25 U/L (12-78); ALBUMIN 3.8 G/DL (3.4-5.0); ALBUMIN/GLOBULIN RATIO 1.1 (1.1-1.5); ALKALINE PHOSPHATASE 106 IU/L (46-116); ANION GAP 9 (8-16); ASPARTATE AMINO TRANSFERASE 15 U/L (10-37); BILIRUBIN,TOTAL 0.4 MG/DL (0.1-1.0); BLOOD UREA NITROGEN 17 MG/DL (7-18); CALCIUM 8.9 MG/DL (8.5-10.1); CHLORIDE 108 MMOL/L (99-107); CREATININE 0.74 MG/DL (0.40-0.90); GLUCOSE 116 MG/DL (70-104); POTASSIUM 3.4 MMOL/L (3.5-5.1); SODIUM 145 MMOL/L (135-145); TOTAL CARBON DIOXIDE 28.5 MMOL/L (24-32); TOTAL PROTEIN 7.2 G/DL (6.4-8.2); eCRCL 76 ML/MIN; eGFR 82 ML/MIN
[2024-06-27 18:19] VITALS: BP 129/76; PULSE 91; RESP 16; TEMP 99.2; O2SAT 99
== END 2024-06-27 18:28 | disposition home or self-care (01) ==
LOC: ER 16:58
DX: R50.9 Fever, unspecified (principal); N89.8 Other specified noninflammatory disorders of vagina; Z88.8 Allergy status to other drugs, medicaments and biological substances; Z88.5 Allergy status to narcotic agent; Z79.899 Other long term (current) drug therapy
CPT/HCPCS: 36415; 80053; 85025; 99283

== ENCOUNTER 2025-02-21 21:01 | Emergency (ER) | payer BC, MEDICAID ==
[2025-02-21 21:33] VITALS: BP 163/108; PULSE 113; RESP 17; TEMP 98.6; O2SAT 98
--- NOTE | 2025-02-21 22:12 | Physician Documentation ---
History of Present Illness ~ Chief Complaint: See Chief Complaint Stated Complaint: SUICIDAL Time Seen by MD: 22:02 Primary Medical Doctor: TOMA/Claude EVERETT This is a this is a 54-year-old female who presents for evaluation of not wanting to live. Denies actual suicidal ideation. Denies homicidal ideation. She has a no plan. The reason for depressive thoughts in his the fact that she broke up with her boyfriend. She reports being depressed for quite some time now. No particular palliating or aggravating factors. Reports chronic neck pain, which prevents her from sleeping. She feels that insomnia contributes to her depression. Denies any acute somatic complaints. Denies chest pain or difficulty breathing, headache, nausea, vomiting, diarrhea, abdominal pain. She does not have guns that she given up guns last time she was suicidal. Denies use of tobacco, alcohol or illicit substances. Medication Reconciliation Allergies: Coded Allergies: gabapentin (Verified Allergy, Severe, SEVERE NEUROLOGICAL RXN PER PT, 02/21/25) lithium carbonate (Verified Allergy, Severe, SEVERE NEUROLOGICAL RXN PER PT, 02/21/25) morphine (Verified Adverse Reaction, Intermediate, DOESN'T TOLERATE ANY OPIOIDS WELL PER PT, 02/21/25) Scheduled Ascorbic Acid (Vitamin C), 1 TAB PO Q12H, (Reported) Bupropion HCl (Bupropion Xl), 1 TAB PO QAM, (Reported) Cholecalciferol (Vitamin D), 1 TAB PO DAILY, (Reported) Hydroxychloroquine Sulfate* (Plaquenil*), 1 TAB PO DAILY, (Reported) Ivermectin (Ivermectin), 10 TAB PO Q72H, (Reported) Levothyroxine Sodium (Levothyroxine Sodium), 1 TAB PO DAILY, (Reported) Metoprolol Succinate (Metoprolol Succinate), 0.5 TAB PO DAILY, (Reported) Sertraline HCl (Sertraline HCl), 1 TAB PO DAILY, (Reported) Vitamin B Complex (B Complex), 1 TAB PO DAILY, (Reported) Scheduled PRN Hydroxyzine Pamoate (Hydroxyzine Pamoate), 1 CAP PO BID PRN for for anxiety/agitation, (Reported) Past Medical History Past Medical History: Basal Cell Past Surgical History: noncontributory Drug Use: none Lives with: Mother, Father Lives In: Home Occupation: employed Review of Systems ROS 10 point review of systems was performed and unless noted above in HPI is negative for acute process/complaint. Physical Exam Vital Signs: Temperature: 98.6, Source: Temporal, Heart Rate: 113, Respiratory Rate: 17, BP: 163/108, Pulse Oximetry: 98 Physical Exam Physical examination: GENERAL: Awake, alert, oriented, GCS 15, no apparent distress, non-toxic appearing, answers questions, follows commands appropriately. Examined in triage HEENT: Atraumatic, normocephalic, pupils equal, extraocular muscles intact Active gross movements, sclerae anicteric, mucus membranes moist, no stridor. NECK: Midline, no JVD CARDIOVASCULAR: Good skin perfusion without evidence of pallor, mottling. PULMONARY: Nonlabored, symmetric chest rise, no audible wheezing, no accessory muscle use, no respiratory distress, speaking in full sentences. GASTROINTESTINAL: Not distended. NEUROLOGIC: Lucid with normal mental status. Normal facial symmetry. Moves all extremities symmetrically and with purpose. No truncal ataxia. Speech is fluid without evidence of dysarthria or aphasia, no focal deficits appreciated. EXTREMITIES: Acute deformities Skin: warm, dry PSYCHIATRIC: Depressed and tearful affect, normal insight, normal concentration. Focused exam: [Does not appear to be responding to internal stimuli] Progress Results/Orders Results/Orders Orders - NEFTALY MATIAS DO Cbc/Diff (02/21/25 21:37) Urinalysis (02/21/25 21:37) Drug Screen, Urine (02/21/25 21:37) Ethanol (02/21/25 21:37) TSH (02/21/25 21:37) Med Rec (02/21/25 21:37) 1799.11 (02/21/25 21:37) BMP (02/21/25 21:37) Close Observation Level (02/21/25 21:37) Covid19 Binax Poc Result Entry (02/21/25 21:37) Substance Use Navigator (02/21/25 21:37) Vital Signs 02/21/25 21:33 Temp 98.6 Pulse 113 Resp 17 B/P (MAP) 163/108 Pulse Ox 98 Laboratory Tests Test 02/21/25 21:55 Medical Decision Making Additional information obtaine: N/A Findings Facility Status: ED Holds, RME process The plan was discussed with the patient, who demonstrates clear understanding of the plan and is in agreement with the plan unless otherwise noted in the chart. All questions have been answered, all concerns were addressed unless otherwise documented. I was available throughout their ED stay for frequent reassessment and questions. Differential Diagnoses (considered and possible or likely): [Depression, relationship crisis, unlikely passive suicidal thoughts, denies suicidal ideation, denies homicidal ideation, denies plan, no evidence of suicidal attemp t] ??Differential Diagnoses (considered and unlikely, not requiring evaluation currently): [Denies any new somatic complaints] MDM Data Please see [facility] for the following: Independent Historians and external Records Review. Historian: [Patient] Independent Historians: ?[Record review] Medication Management: [Reviewed medication list] Social History and determinants: [Reviewed] Please see the body of the note for the following: Any independent interpretations of ECG, imaging studies. All vitals signs/haemodynamics, ordered tests were independently reviewed and interpreted by myself. Nursing triage complaint and vitals reviewed, additional nursing notes were reviewed as available and I agree unless otherwise noted or documented in contradiction in the chart Vital Signs: Independently reviewed Labs: Independently interpreted Imaging: Independently interpreted Old Medical Records: Independently reviewed, see [facility] for relevant summary and information Pulse Oximetry: [97%] interpreted as [normal on room air] by me [Window Dresser: [Regular Rate, Regular rhythm, no ectopy, NSR] reviewed and interpreted by me] Additionally notably showing: [Hemodynamics reviewed. She isn't febrile, not hypotensive, no evidence of respiratory distress. Initially tachycardic. Tachycardia had improved with the rest alone. Laboratory studies] Tests considered but not ordered include: [Imaging does not appear to be necessary] Social Determinants of Health Impact: Patient was evaluated in [facility], or [facility] [place] access to healthcare due to below par ratio of patient to medical providers. [] Comorbid Conditions Impacting Present Evaluation and Care/Treatment: [History of depression] Management Discussions with other Healthcare Providers: [None] Treatment and Disposition Medication Management (Given or considered): []. See EMR for details Consideration for Hospitalization/Escalation/Deescalation of Care: Admission for observation has been considered, [however the patient is able to tolerate p.o., their symptoms are controlled, they are able to rely on oral medications, and their chief complaint/diagnosis can be managed on outpatient basis.] ?ED Course:?[Date: Feb 21, 2025 Time: 22:37 the patient states that she talked to her manufacturing project manager. She no longer feels like she does not want to live. She will have follow-up with her mental health professional. Denies suicidal ideation. Denies plan. Does not have access to guns. ] ?Shared decision making:?[Patient is hemodynamically stable for discharge home with follow with their primary care provider. [ ] Specific and cautious return precautions provided and discussed with full understanding. Any incidental findings were also discussed and follow up recommendations given. [] All questions answered. Patient/family were able to verbalize back return precautions. Patient/family agree to plan. Copies of imaging and laboratory studies were provided.] Code status:?FULL Please see the full Electronic Medical Record for full details of nursing documentation, medications list, other records of complete past medical history and conditions, vital signs, laboratory studies, and any radiologic study interpretations by radiologists. Portions of this note were completed using [employer] dictation software and as a result there may exist minor errors in spelling. I have reviewed elements of past family and social history and agree as included in note. Has been Differential Dx:Considerations: Include: Depression; Unlikely: Homicidal, Suicidal Departure Disposition: 01 HOME / SELF CARE / HOMELESS Impression: Primary Impression: Relationship problem between partners Additional Impressions: Chronic neck pain Depression Condition: Improved Discharge Instructions: Managing Depression, Adult Additional Instructions: Please return to emergency department, called 911, call your friends if you develop suicidal ideation. Referrals: NO PRIMARY CARE PROVIDER (PCP) Education Educated: Patient Educated regarding: diagnosis, treatment, prognosis, need for follow up Signature Scribe Signature: No scribe Attestation: The note accurately reflects work and decisions made by me.Neftaly Matias DO 02/21/25 22:11 NEFTALY MATIAS DO Feb 21, 2025 22:12
[2025-02-21 22:37] LABS: MEAN PLATELET VOLUME 8.8 FL (7.4-10.4); RED CELL DISTRIBUTION WIDTH 13.7 % (11.5-14.5)
[2025-02-21 23:00] LABS: CREATININE 0.73 MG/DL (0.40-0.90); ETHANOL < 10 MG/DL (<10); TOTAL CARBON DIOXIDE 28.6 MMOL/L (24-32); eGFR 83 ML/MIN
== END 2025-02-21 23:00 | disposition home or self-care (01) ==
LOC: ER 21:02
DX: F32.A Depression, unspecified (principal); G89.29 Other chronic pain; M54.2 Cervicalgia; G47.00 Insomnia, unspecified; Z88.8 Allergy status to other drugs, medicaments and biological substances; Z88.5 Allergy status to narcotic agent; Z79.899 Other long term (current) drug therapy; Z20.822 Contact with and (suspected) exposure to COVID-19
CPT/HCPCS: 36415; 80048; 80320; 84443; 85025; 87811; 99284